=== PATIENT | male | born 1995 | race Caucasian/White ===

== ENCOUNTER 2020-12-08 09:40 | Day surgery (SDC) | payer OTHER ==
[~2020-12-08] VITALS: Ht 175.3 cm; Wt 86.4 kg
[2020-12-08 10:09] LABS: BASOPHILS 0.7 % (0-2); EOSINOPHILS 3.3 % (0-7); HEMATOCRIT 45.6 % (42.0-54.0); HEMOGLOBIN 15.9 g/dL (13.5-17.5); LYMPHOCYTES 17.9 % (15-50); MCH 32.3 pg (26.0-34.0); MCV 92.4 fL (80.0-100.0); MONOCYTES 10.1 % (2-11); PLATELET COUNT 292 10x3/uL (130-400); RBC 4.94 10x6/uL (4.20-6.10); RDW 12.7 % (11.5-14.5); WBC 4.6 10x3/uL (4.8-10.8)
[2020-12-08 10:21] LABS: APTT 28.6 SECONDS (22.8-39.4); INR 1.04 (0.85-1.17); PROTIME 12.5 SECONDS (11.6-15.0)
[2020-12-08] MEDS ORDERED: COZAAR50 MG PO (10:26)
[2020-12-08] MEDS ORDERED: PEPCID40 MG PO (10:27)
[2020-12-08 10:37] VITALS: Ht 175.3 cm; Wt 86.4 kg
--- NOTE | 2020-12-08 13:45 | NUR ---
UPON ARRIVAL PT HAS SWOLLEN LIP-REPORTED FROM PACU NURSE THAT PT BIT HIS LIP. DR BAIRES TOLD THIS NURSE FOR PT TO BE NPO FOR 2 HOURS FROM ARRIVAL (UNTIL 1545) THEN CAN DRINK WATER. 1415 NOTED THAT PT IS BREATHING SHALLOW AND AT RATE OF 28 AND O2 IS 94, PTS O2 SAT DROPS TO MID-HIGH 80S, PT EDUCATED TO TAKE SLOW DEEP BREATHS WHICH BROUGHT O2 SATURATION UP TO NORMAL RANGE. REPORTS HAVING TO REMIND PT TO TAKE SLOW DEEP BREATHS OR PTS O2 DROPS. 15[address]SE [address]POKE WITH [address] BAIRES TO INFORM WHAT IS NOTED ABOVE AND XRAY RESULTS. DR BAIRES ACKNOWLEGED THIS NURSE'S CONCERN, STATED THAT PT CAN DRINK AFTER BEING NPO FOR 2 HOURS AFTER ARRIVAL ON THIS UNIT (1545), THEN CAN GO HOME. 1620 DC TEACHING COMPLETED TO PT AND . ACKNOWLDEGED UNDERSTANDING. PIV DC'D, CATHETER INTACT. PT GETTING DRESSED WITH ASSISTING. 1633 PT DC'D VIA WC BY THIS NURSE WITH ALL BELONGINGS AND DC PACKET TO POV WITH MOTHER DRIVING.
== END 2020-12-08 16:33 | disposition home or self-care (01) ==
LOC: D.OPS 09:40
PROVIDERS: ATTEND Internal Medicine Pulmonary Disease
DX: R59.0 Localized enlarged lymph nodes (principal); R91.8 Other nonspecific abnormal finding of lung field; R06.09 Other forms of dyspnea; K21.9 Gastro-esophageal reflux disease without esophagitis; R05 Cough

== ENCOUNTER → 2020-12-19 11:18 | Outpatient (CLI) | payer OTHER ==
[2020-12-08 10:37] VITALS: BMI 28.1
[~2020-12-19 11:18] MED LIST: COZAAR50 MG PO; PEPCID40 MG PO
[2020-12-19 14:28] LABS: ERYTHROCYTE SEDIMENTATION RATE 6 mm/hr (0-15)
[2020-12-20 10:13] LABS: ANA REFLEX - DIRECT Negative (Negative)
[2020-12-21 12:11] LABS: ANGIOTENSIN CONVERTING ENZYME 74 U/L (14-82)
== END | disposition home or self-care (01) ==
LOC: D.LAB 11:18
PROVIDERS: ATTEND Internal Medicine Pulmonary Disease
DX: R59.0 Localized enlarged lymph nodes (principal)

== ENCOUNTER → 2021-01-02 13:44 | Outpatient (CLI) | payer OTHER ==
[2020-12-08 10:37] VITALS: BMI 28.1
[2021-01-02 14:14] LABS: SARS-CoV-2 ANTIGEN NEGATIVE- SARS-COV-2 (NEGATIVE)
== END | disposition home or self-care (01) ==
LOC: D.LAB 13:00 → D.RT 01-03 15:00
PROVIDERS: ATTEND Internal Medicine Pulmonary Disease
DX: R06.09 Other forms of dyspnea (principal)